=== PATIENT | female | born 1985 | race Caucasian/White ===

== ENCOUNTER 2018-02-08 10:32 | Emergency (ER) | payer MEDICAID, OTHER ==
[~2018-02-08] VITALS: Ht 170.2 cm; Wt 102.0 kg
[2018-02-08 10:42] VITALS: BP 127/86
[2018-02-08] MEDS ORDERED: PER5325T PO (10:56)
== END 2018-02-08 11:08 | disposition home or self-care (01) ==
LOC: ER 10:33
DX: G89.29 Other chronic pain (principal); M54.5 Low back pain; Z76.0 Encounter for issue of repeat prescription; Z79.899 Other long term (current) drug therapy
CPT/HCPCS: 99283